=== PATIENT | male | born 1990 | race Two or more races ===

== ENCOUNTER 2025-03-07 18:58 | Emergency (ER) | payer SELFPAY ==
[~2025-03-07] VITALS: Ht 175.3 cm; Wt 81.8 kg
[2025-03-07] MEDS: OLANZapine 5 MG TAB PO ONE (03:25)
[2025-03-07 20:53] LABS: Hematocrit 38.2 % (41.0-53.0); Hemoglobin 13.0 g/dL (13.5-17.5); Mean Corpuscular Hemoglobin 31.8 pg (28.0-32.0); Mean Corpuscular Volume 93.5 fL (80.0-100.0); Nucleated Red Blood Cells % 0.2 %
[2025-03-07 21:00] LABS: Chloride 104 mmol/L (98-107); Potassium 3.8 mmol/L (3.5-5.1); Sodium 140 mmol/L (136-145)
[2025-03-07 21:01] LABS: Anion Gap 9 (5-15); Calcium 9.3 mg/dL (8.7-10.4); Carbon Dioxide 27 mmol/L (20-31)
[2025-03-07 21:06] LABS: BUN/Creatinine Ratio 9.2 (10.0-20.0); Glucose 94 mg/dL (74-106)
[2025-03-07 21:07] LABS: Blood Urea Nitrogen 8 mg/dL (9-23)
--- NOTE | 2025-03-07 22:53 | DVHINCON2 ---
Date of Service if different f: Mar 07, 2025 Time of Service: 22:18 Consultation ([facility]) Consulting Physician: MAGDI QURESHI MD Labs Laboratory Tests Test 03/07/25 20:23 White Blood Count 13.8 10^3/uL (4.4-10.8) Red Blood Count 4.09 10^6/uL (4.5-5.90) Hemoglobin 13.0 g/dL (13.5-17.5) Hematocrit 38.2 % (41.0-53.0) Mean Corpuscular Volume 93.5 fL (80.0-100.0) Mean Corpuscular Hemoglobin 31.8 pg (28.0-32.0) Mean Corpuscular Hemoglobin Concent 34.0 g/dL (32.0-36.0) Red Cell Distribution Width 15.0 % (11.8-14.3) Platelet Count 347 10^3/uL (140-450) Mean Platelet Volume 7.3 fL (6.9-10.8) Neutrophils (%) (Auto) 69.5 % (37.0-80.0) Lymphocytes (%) (Auto) 24.7 % (10.0-50.0) Monocytes (%) (Auto) 3.8 % (0.0-12.0) Eosinophils (%) (Auto) 1.5 % (0.0-7.0) Basophils (%) (Auto) 0.5 % (0.0-2.0) Neutrophils # (Auto) 9.6 10 ^3/uL (1.6-8.6) Lymphocytes # (Auto) 3.4 10 ^3/uL (0.4-5.4) Monocytes # (Auto) 0.5 10 ^3/uL (0-1.3) Eosinophils # (Auto) 0.2 10 ^3/uL (0-0.8) Basophils # (Auto) 0.1 10 ^3/uL (0-0.2) Nucleated Red Blood Cells 0.2 % Sodium Level 140 mmol/L (136-145) Potassium Level 3.8 mmol/L (3.5-5.1) Chloride Level 104 mmol/L (98-107) Carbon Dioxide Level 27 mmol/L (20-31) Anion Gap 9 (5-15) Blood Urea Nitrogen 8 mg/dL (9-23) Creatinine 0.87 mg/dL (0.700-1.30) Glomerular Filtration Rate Calc 115 mL/min (>90) BUN/Creatinine Ratio 9.2 (10.0-20.0) Serum Glucose 94 mg/dL (74-106) Calcium Level 9.3 mg/dL (8.7-10.4) Plasma/Serum Blood Alcohol < 3.0 mg/dL (<10) Appearance: Stated age Psychomotor activity: Pacing Behavioral: Cooperative Eye contact: Appropriate Speech: WNL Affect: Appropriate, Mood Congruent Mood: Dysphoric, Anxious Thought processes: Linear/Goal-directed Thought content: Paranoid, Hallucinations Suicidal ideations: Present Homicidal ideations: Absent Orientation: Person, Place, Time, Situation Memory intact: Recent Intellect: Average Abstractability: WNL Concentration: Adequate Attention: Adequate Judgement: WNL Insight: Fair Vitals Vital Signs Date Time Temp Pulse Resp B/P (MAP) Pulse Ox O2 Delivery O2 Flow Rate FiO2 03/07/25 19:02 98.3 98 24 133/79 98 98.3 Treatment plan discussed: With staff Medication adjusted: Yes Labs ordered: No Psychotherapy provided: No Type: Voluntary History of Present Illness Reason for Consult : psychiatric evaluation PSYCHIATRIST HPI: The patient was seen and evaluated at [facility] ED via telepsychiatry platform. 34 yr old male reported he is hearing voices and seeing things that aren't there. He reported he has been feeling suicidal. He is thinking about quitting and getting clean and sober. He reported he uses [facility] meth every day for about the past ten years. He said he has had hallucinations for a long time. He noted he is motivated to quit and stay off meth. He has been to rehab in the past, but has left the program. He had gone to a [facility] program in the past. He noted his mood has been down and he feels hopeless and helpless and feels like he needs help. he noted he has been sleep ing little lately. He denied having homicidal ideation. Past Psychiatric History : about 5-6 suicide attempts, last about 12 years ago. Hospitalized about 5 times. Diagnosed paranoid schizophrenia. Past Medical History: knee injury, bad shoulder Current Medications: Zyprexa at night NKDA Substance use: Alcohol-infrequent use. Occasional MJ use. Meth use most days. Denied use of tobacco and other substance use. Social History: Lives in [place] with mom and roommates. He was at [facility] for 15 days of rehab, but had to leave. Unemployed. 10th grade education. Diagnosis: UNSPECIFIED PSYCHOTIC DISORDER; METH USE DISORDER Formulation: This 34 yr old male appears to suffer from psychosis and meth use disorder. He has significant suicidal ideation and warrants admission to behavioral health unit. He agrees to voluntary admission to behavioral health unit and meets criteria for involuntary hold on basis of danger to self. Plan: 1. Transfer to Behavioral health unit when medically cleared and bed available. 2. Legal-Voluntary. He agrees to voluntary admission to [facility]. If patient is refusing voluntary hospitalization or no voluntary beds are available, please evaluate for 5150 hold. 3. Medication: recommend starting Zyprexa 5mg BID 4. Contact psychiatry if further evaluation or follow up is desired. 5. case discussed with ED physician underwriting assistant Tacos Brooks. Assessment/Diagnosis/Plan Reviewed: Labs, Medications, Previous Orders MAGDI QURESHI MD Mar 07, 2025 22:19
--- NOTE | 2025-03-07 23:01 | ED.PDOC ---
Psychiatric HPI Comments This patient is a 34-year-old homeless male who arrives the ED today for assistance with psychosis concerns. Patient states he has been hearing voices and seeing images for the past few days. Patient has a manic affect and appears to be dealing with some level of psychosis. Vital signs were stable. No signs of trauma. Chief Complaint: Anxiety Time Seen by MD: 19:10 Reviewed Notes: Nurses Notes Information Source: Patient Mode of Arrival: Ambulatory Severity: Able to Care for Self Severity of Pain: None Severity of Mental Status: Severe Severity of Symptoms: Severe Timing: Days Duration: Since onset Prehospital treatment: None Presents with: Other (Auditory and visual hallucinations) Quality: Hallucinations Past Medical History PAST MEDICAL HISTORY: Denies Past Medical History (Other): Patient appears to have some form of psychosis. Surgical History: Denies all surgeries Family History Family History: Reviewed,noncontributory to illness, No family hx of Cancer, No family hx of DM, No family hx of Heart bryan, No family hx of HTN, No family hx ofKidney bryan, No family hx of Liver bryan, No family hx of Lung bryan, No family hx of Stroke Social History Smoker: Non-Smoker Alcohol: Denies ETOH Use Drugs: Denies Drug Use Lives In: Homeless Constitutional: denies: chills, diaphoresis, fatigue, fever, malaise, sweats, weakness, others EENTM: denies: blurred vision, double vision, ear bleeding, ear discharge, ear drainage, ear pain, ear ringing, eye pain, eye redness, hearing loss, mouth pain, mouth swelling, nasal discharge, nose bleeding, nose congestion, nose pain, photophobia, tearing, throat pain, throat swelling, voice changes, others Respiratory: denies: cough, hemoptysis, orthopnea, SOB at rest, shortness of breath, SOB with excertion, stridor, wheezing, others Cardiovascular: denies: chest pain, dizzy spells, diaphoresis, Dyspnea on exertion, edema, irregular heart beat, left arm pain, lightheadedness, palpitations, PND, syncope, others Gastrointestinal: denies: abdomen distended, abdominal pain, blood streaked bowels, constipated, diarrhea, dysphagia, difficulty swallowing, hematemesis, melena, nausea, poor appetite, poor fluid intake, rectal bleeding, rectal pain, vomiting, others Genitourinary: denies: burning, dysuria, flank pain, frequency, hematuria, incontinence, penile discharge, penile sore, pain, testicle pain, testicle swelling, urgency, others Neurological: denies: dizziness, fainting, headache, left sided numbness, left sided weakness, numbness, paresthesia, pre-existing deficit, right sided numbness, right sided weakness, seizure, speech problems, tingling, tremors, weakness, others Musculoskeletal: denies: back pain, gout, joint pain, joint swelling, muscle pain, muscle stiffness, neck pain, others Integumetry: denies: bruises, change in color, change in hair/nails, dryness, laceration, lesions, lumps, rash, wounds, others Allergic/Immunocompromised: denies: Difficulty Healing, Frequent Infections, Hives, Itching, others Hematologic/Lymphatic: denies: anemia, blood clots, easy bleeding, easy bruising, swollen glands, others Endocrine: denies: excessive hunger, excessive sweating, excessive thirst, excessive urination, flushing, intolerance to cold, intolerance to heat, unexplained weight gain, unexplained weight loss, others Psychiatric: reports: others (Hallucinations); denies: anxiety, bipolar disorder, depression, hopeless, panic disorder, schizophrenia, sleepless, suicidal Unable to Obtain due to: Altered Mental Status Physical Exam General Appearance: Moderate Distress ([id number] distress due to his hallucination concerns. Patient appears manic.), Normal HEENT: Head (Unremarkable cranial evaluation. No signs of trauma. No skull depressions or deformities.), Normal ENT Inspection, Pharynx Normal, TMs Normal Neck: Full Range of Motion, Non-Tender, Normal, Normal Inspection Respiratory: Chest Non-Tender, Lungs Clear, No Accessory Muscle Use, No Respiratory Distress, Normal Breath Sounds Cardiovascular: No Edema, No JVD, No Murmur, No Gallop, Normal Peripheral Pulses, Regular Rate/Rhythm Breast Exam: Deferred Gastrointestinal: No Organomegaly, Non Tender, No Pulsatile Mass, Normal Bowel Sounds, Soft Genitalia: Deferred Pelvic: Deferred Rectal: Deferred Extremities: No calf tenderness, Normal inspection, Non-tender Neurologic: Alert Cerebellar Function: NOT DONE Reflexes: NOT DONE Skin: Dry, Normal Color, Warm Lymphatic: No Adenopathy Was a procedure done? Was a procedure done?: No Psych Differential Dx Psych. Differential Dx: Bipolar Disorder, Depression, Schizoprenia X-Ray, Labs, Meds, VS Vital Signs Date Time Temp Pulse Resp B/P (MAP) Pulse Ox O2 Delivery O2 Flow Rate FiO2 03/07/25 19:02 98.3 98 24 133/79 98 98.3 Lab Test 03/07/25 20:23 Range/Units White Blood Count 13.8 H 4.4-10.8 10^3/uL Red Blood Count 4.09 L 4.5-5.90 10^6/uL Hemoglobin 13.0 L 13.5-17.5 g/dL Hematocrit 38.2 L 41.0-53.0 % Mean Corpuscular Volume 93.5 80.0-100.0 fL Mean Corpuscular Hemoglobin 31.8 28.0-32.0 pg Mean Corpuscular Hemoglobin Concent 34.0 32.0-36.0 g/dL Red Cell Distribution Width 15.0 H 11.8-14.3 % Platelet Count 347 140-450 10^3/uL Mean Platelet Volume 7.3 6.9-10.8 fL Neutrophils (%) (Auto) 69.5 37.0-80.0 % Lymphocytes (%) (Auto) 24.7 10.0-50.0 % Monocytes (%) (Auto) 3.8 0.0-12.0 % Eosinophils (%) (Auto) 1.5 0.0-7.0 % Basophils (%) (Auto) 0.5 0.0-2.0 % Neutrophils # (Auto) 9.6 H 1.6-8.6 10 ^3/uL Lymphocytes # (Auto) 3.4 0.4-5.4 10 ^3/uL Monocytes # (Auto) 0.5 0-1.3 10 ^3/uL Eosinophils # (Auto) 0.2 0-0.8 10 ^3/uL Basophils # (Auto) 0.1 0-0.2 10 ^3/uL Nucleated Red Blood Cells 0.2 % Sodium Level 140 136-145 mmol/L Potassium Level 3.8 3.5-5.1 mmol/L Chloride Level 104 98-107 mmol/L Carbon Dioxide Level 27 20-31 mmol/L Anion Gap 9 5-15 Blood Urea Nitrogen 8 L 9-23 mg/dL Creatinine 0.87 0.700-1.30 mg/dL Glomerular Filtration Rate Calc 115 >90 mL/min BUN/Creatinine Ratio 9.2 L 10.0-20.0 Serum Glucose 94 74-106 mg/dL Calcium Level 9.3 8.7-10.4 mg/dL Plasma/Serum Blood Alcohol < 3.0 <10 mg/dL X-Ray, Labs, Meds, VS Comment All studies performed the ED were evaluated by me personally. Urinalysis was pending at time of this note. Spoke with our tele psych Dr., Dr. Russell, and he advised placement of the patient. Patient will remain in the ED until transfer can be established. Dr. Russell advised Zyprexa 5 mg twice a day. Time of 1ST Reevaluation: 22:59 Reevaluation 1ST: Unchanged Consultation: PCP, Psychiatry Patient Education/Counseling: Diagnosis, Treatment Family Education/Counseling: Diagnosis, Treatment Departure 1 Departure Time of Disposition: 23:00 Impression: Primary Impression: Psychosis Additional Impression: Hallucinations Disposition: 02 SHORT TERM HOSPITAL Condition: Fair Discharged With: Self Critical Care Note Critical Care Time?: No Stability Stability form required: No Heart Score Heart Score: Heart Score Response (Comments) Value History N/A 0 EKG N/A 0 Age N/A 0 Risk Factors N/A 0 Troponin N/A 0 Total 0 JIGAR JIN PAC Mar 07, 2025 23:01
[2025-03-08 03:29] LABS: Amphetamine Screen, Urine Neg (NEGATIVE); Barbiturate Scree,Urine Neg (NEGATIVE); Benzodiazephine Screen, Urine Neg (NEGATIVE); Cannabinoid Screen, Urine Neg (NEGATIVE); Cocaine Screen, Urine Neg (NEGATIVE); Opiate Scree,Urine Neg (NEGATIVE); Phencyclidine Screen, Urine Neg (NEGATIVE)
[2025-03-08 03:34] LABS: Urine Protein, UAD Negative (Negative)
[2025-03-08] MEDS: LORazepam 0.5 MG TAB PO ONE (08:37)
[2025-03-08 08:45] VITALS: PULSE 110; RESP 16; O2SAT 95
[2025-03-08] MEDS: OLANZapine 5 MG TAB PO ONE (10:35)
[2025-03-09 10:07] VITALS: BP 106/72; PULSE 110; RESP 16; TEMP 98.2; O2SAT 98
== END 2025-03-09 10:23 | disposition short-term general hospital (02) ==
LOC: ER 18:58 → EDBD 18:58 → ER 03-09 10:23
DX: R44.3 Hallucinations, unspecified (principal); Z59.00 Homelessness unspecified
CPT/HCPCS: 36415; 80048; 80307; 80320; 81001; 85025